=== PATIENT | female | born 1940 | race Caucasian/White ===

== ENCOUNTER → 2016-12-05 | Outpatient (CLI) | payer MEDICARE, BC | END | disposition home or self-care (01) | LOC: CDC 11:23 | DX: Z01.810 Encounter for preprocedural cardiovascular examination (principal); M65.342 Trigger finger, left ring finger; Z88.6 Allergy status to analgesic agent | CPT/HCPCS: 93000 ==

== ENCOUNTER → 2017-03-30 | Outpatient (CLI) | payer OTHER, BC | END | disposition home or self-care (01) | LOC: NUC 07:21 | DX: R10.13 Epigastric pain (principal); R74.0 Nonspecific elevation of levels of transaminase and lactic acid dehydrogenase [LDH]; K21.9 Gastro-esophageal reflux disease without esophagitis; R14.3 Flatulence | CPT/HCPCS: 78226; A9537 ==